=== PATIENT | male | born 1930 | race Caucasian/White ===

== ENCOUNTER → 2021-01-21 | Outpatient (CLI) | payer OTHER | LOC: COVVAC 10:03 → LAB 10:03 | PROVIDERS: ATTEND Student in an Organized Health Care Education/Training Program | DX: Z01.812 Encounter for preprocedural laboratory examination (principal); Z20.822 Contact with and (suspected) exposure to COVID-19 ==

== ENCOUNTER → 2021-01-31 | Day surgery (SDC) | payer OTHER ==
[~2021-01-31] VITALS: Ht 170.2 cm; Wt 65.8 kg
[~2021-01-31] MED LIST: ATORVASTATIN CA80 MG PO; CARVEDILOL12.5 MG PO; MAGNESIUM250 M1 PO; NORVASC 2.5 MG2.5 M1 PO; PEPCID AC20 MG PO; PRINIVIL40 MG PO; TAMSULOSIN HCL0.4 MG PO; VITAMIN D375 MCG PO; XARELTO20 MG PO
[2021-01-31 14:21] VITALS: BP 188/109
--- NOTE | 2021-02-04 06:13 | O ---
[facility] [place] [address] OPERATIVE REPORT Name: TOAN JI Room #: REG [facility].#: [id number] Admission: 01/31/21 Attend Phys: Issac Wang MD Discharge: Date of : [birth year] Report #: [id number] THIS REPORT FOR: cc: Vinod Fraizer MD,Vinod Wang,Issac Domingo MD ~ DOC #: [id number] cc: Vinod Frazier MD, Dr. 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 PROCEDURE: Bilateral lower lid entropion repair with transconjunctival left lower lid and cheek lift. SURGEON: Dr. Issac Wang. REAL ESTATE JOB TITLES: None. ANESTHESIA: MAC. COMPLICATIONS: None. INDICATIONS: This pleasant 89-year-old gentleman has bilateral lower lid ectropion with corneal uptake of fluorescein on both sides. 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 He presents today for bilateral lower lid ectropion repair combined with a lower lid and cheek lift in order to attempt to improve his ocular surface milieu, his level of visual function and his chronic ocular discharge. Informed consent was obtained to include but not limited to the potential risk for loss of vision, bleeding, infection, failure to improve the problem, the potential need for further surgery or treatment. DESCRIPTION OF PROCEDURE: The patient was taken to the operating room where 2% Xylocaine with epinephrine mixed equal parts 0.75% Marcaine with Wydase was administered to each lateral canthus, lower lid and infratemporal fossa. In addition, on the left side, an aliquot of anesthetic was administered in the cheek down to the left upper lid. The patient was subsequently prepped and draped in the usual sterile fashion. [address] [address] OPERATIVE REPORT Name: TOAN JI Room #: REG [facility]..#: [id number] Admission: 01/31/21 Attend Phys: Issac Wang MD Discharge: Date of : [birth year] Report #: [id number] The left lateral canthus was then clamped with a Flores clamp. Sharp canthotomy and cantholysis was then performed. Hemostasis was then re-achieved. A tarsal strip was then prepared laterally removing the lash bearing portion of the redundant lid margin and the redundant tarsal plate. Hemostasis was then re-achieved. A transconjunctival incision was then made below the inferior border of the tarsal plate across the width of the lid. The dissection was then carried down into the premalar spaces sharply. Hemostasis was then re-achieved. The lower lid and cheek tissues were then elevated and resuspended with interrupted mattress 5-0 chromic sutures. The lower lid and cheek lifted well. Attention was then turned away from the lower lid and cheek lift and towards completion of the ectropion repair. The tarsal strip was secured to the internal portion of the lateral orbital tubercle with interrupted 5-0 Prolene sutures. The subcutaneous structures and the skin were then closed with interrupted 6-0 plain gut sutures. The right lateral canthus was then clamped with a Flores clamp. Sharp canthotomy and cantholysis was then performed. Hemostasis was then re-achieved. A tarsal strip was then prepared laterally removing the redundant lid margin and the redundant tarsal plate. Hemostasis was once more re-achieved. The tarsal strip was then secured to the internal portion of the lateral orbital tubercle with interrupted 5-0 Prolene sutures. The subcutaneous structures and the skin were then closed with interrupted 6-0 plain gut sutures. The wound was then cleaned and dressed with erythromycin ophthalmic ointment. The patient subsequently transported to the recovery area, having tolerated the procedures well with no anesthetic or operative complications being noted. Issac Wang MD WLW/ALL <ELECTRONICALLY SIGNED> By: Issac Wang MD 02/04/21 0613 [id number] Issac Wang MD /nt
== END | disposition home or self-care (01) ==
LOC: OR
PROVIDERS: ATTEND Ophthalmology
DX: H02.105 Unspecified ectropion of left lower eyelid (principal); H02.102 Unspecified ectropion of right lower eyelid; H02.205 Unspecified lagophthalmos left lower eyelid; H02.535 Eyelid retraction left lower eyelid; H18.9 Unspecified disorder of cornea; I10 Essential (primary) hypertension; E78.5 Hyperlipidemia, unspecified; N40.0 Benign prostatic hyperplasia without lower urinary tract symptoms; K21.9 Gastro-esophageal reflux disease without esophagitis; Z98.890 Other specified postprocedural states; Z79.899 Other long term (current) drug therapy; Z85.828 Personal history of other malignant neoplasm of skin; Z95.0 Presence of cardiac pacemaker; Z98.41 Cataract extraction status, right eye; Z98.42 Cataract extraction status, left eye
CPT/HCPCS: 50010; 50101; 50386; 50398; 51636; 56527; 56531; 62110; 62850; 70005